=== PATIENT | female | born 1990 | race Caucasian/White ===

== ENCOUNTER 2017-04-13 12:46 | Emergency (ER) | payer OTHER ==
--- NOTE | 2017-04-13 13:19 | ED CLINICAL REPORT ---
Clinical Report - Physicians/Mid Levels [facility] [address] [place] [address] 04/13/2017 12:49 [id number] Time Seen: 13:03; initial patient contact, initial documentation, patient care assumed. Arrived- By private vehicle. Historian- patient and mother. HISTORY OF PRESENT ILLNESS Chief Complaint: CHEST PAIN and DISCOMFORT. At its maximum, severity described as severe. When seen in the E.D., severity described as severe. Modifying factors. Not worsened by anything. Not relieved by anything. This started about 2 days ago and is still present. It was abrupt in onset and has been constant. It is described as "pain" and well localized and it is described as located in the right chest area and right shoulder and in the right scapular area. No radiation. No nausea, vomiting or diaphoresis. She has had difficulty breathing (hurts so bad it hurts to breathe). No additional chest pain. (took 600mg motrin, x2 percocet and prednisone, still hurts). Similar symptoms previously: None. Recent medical care: The patient was seen recently in a clinic. ( went to clinic yesterday for same thing, dx with inflamed shoulder, xrays done, normal, rx percocet, motrin and prednisone). REVIEW OF SYSTEMS No fever, cough, missed periods or abnormal bleeding. All systems otherwise negative, except as recorded above. PAST HISTORY See nurses notes. PROBLEMS: Cellulitis. Asthma. Pneumonia. Nephrolithiasis. URI. Ovarian Cyst. UTI - Urinary Tract Infection. Substance Abuse. Immunizations. Dysfunctional Uterine Bleeding. LNMP - Last Normal Menstrual Period. Lifestyle / Substance Problems. Laceration. Tetanus Status. --12:53 Alfredo Ortez R.N. ADDITIONAL SURGERIES: Cholecystectomy. . Repair R ring finger. Tonsillectomy. --12:53 Alfredo Ortez R.N. SOCIAL HISTORY Heavy tobacco smoker. Occasional alcohol use. History of heavy IV drug use: heroin. Recently used drugs yesterday. No recent travel. Is a local resident. ADDITIONAL NOTES The nursing notes have been reviewed with agreement regarding the chief complaint, HPI, ROS, PMH and patient medications and allergies. PHYSICAL EXAM Vital Signs: 04/13/2017 12:50 BP: 127/77. HR: 105. RR: 36. O2 saturation: 88%. Temp: 98.9 F. Have been reviewed as abnormal and appear to be correct. Blood pressure normal. Tachycardic. Tachypneic. Temperature normal. Oxygen saturation normal. Appearance: Alert. Oriented X3. No acute distress. Anxious. (pt appears under the influence, and very anxious). Eyes: Pupils equal, round and reactive to light. Eyes normal inspection. Neck: Normal inspection. Neck supple. CVS: Normal heart rate and rhythm. Heart sounds normal. Pulses normal. Respiratory: No respiratory distress. Chest tender. Chest pain reproducible with palpation of the posterior chest wall, with movement of the trunk and right arm and with deep breathing (tender over R scapula area). Breath sounds normal. Back: Normal external inspection. Skin: Skin warm and dry. Normal skin color. No rash. Normal skin turgor. Extremities: Extremities exhibit normal ROM. No lower extremity edema. Neuro: Oriented X 3. No motor deficit. No sensory deficit. LABS, X-RAYS, AND EKG EKG: EKG time: (1252). No acute process. No acute ischemia. Normal EKG. Rate: 99. Normal EKG. The study has been interpreted contemporaneously by me (and Dr Cordova). The EKG appears to be a good tracing. PROGRESS AND PROCEDURES Course of Care: tx options discussed, no need to repeat xray since one was done yesterday, pt already has rx meds and instructed to continue those and use heating pad 13:29 04/13/17. pt has chris for suboxone program, hasn't gotten any since Nov, see report for full details nurse reporting mom wants more done than just a 'shot' and she is demanding that we find out what is causing her pain 14:03 04/13/17. at bedside for nurse krysten, pt resting quietly, almost asleep, tx options again discussed with pt's mom, and mom warned about percocet and heroin mix, and voiced concerns over substance abuse and withdrawal. Patient and mother counseled in person. Differential Diagnosis: I considered muscle strain, costochondritis, myositis, pleurisy, myocardial infarction, intermediate coronary syndrome, unstable angina, angina, mitral valve prolapse, pericarditis, palpitations, pneumonia, gastroesophageal reflux disease, esophagitis and esophageal spasm as a possible cause of chest pain in this patient. This is a partial list of diagnoses considered. (anxiety, substance abuse). Disposition: Discharged home in good and improved condition (13:19). Condition: good and stable. CLINICAL IMPRESSION Anxiety reaction with hyperventilation. Chronic substance abuse- heroin with intoxication and anxiety. Acute nontraumatic pain in the right upper extremity (shoulder) .12 lead EKG performed. INSTRUCTIONS Warnings: GENERAL WARNINGS: Return or contact your physician immediately if your condition worsens or changes unexpectedly, if not improving as expected, or if other problems arise. SPECIFICALLY, return if you develop chest, neck, jaw, shoulder, arm, or back pain, difficulty breathing, a fluttering sensation in your chest, lightheadedness, fainting, excessive fatigue, or sudden sweating. Follow-up: Follow up with your doctor in about two days as needed. Call for an appointment. Summary of care provided to patient. Understanding of the discharge instructions verbalized by patient. (Electronically signed by Angelique Rollins A.R.N.P. 04/13/2017 15:00)
--- NOTE | 2017-04-13 13:19 | ED NURSING NOTES ---
Clinical Report - Nurses [facility] [address] [place] [address] 04/13/2017 12:49 Patient: EMILIANA DIXON TRIAGE Triage time 12:47. Acuity: LEVEL 2. Chief Complaint: CHEST PAIN. Alert. No acute distress. SEPSIS SCREEN: Sepsis Screen. Negative (no infection suspected/documented). Temperature not greater than 38.3 degrees C (101 degrees F). --12:56 Alfredo Ortez R.N. 12:50 04/13/17. BP: 127/77. HR: 105. RR: 36. O2 saturation: 88% on room air. Temp: 98.9 F (oral). Pain level now 10/10. --12:56 Alfredo Ortez R.N. 12:56 04/13/17. HR: 105. RR: 36. O2 saturation: 95% on nasal cannula at 2 liters/minute. Temp: 98.9 F. Pain level now 10/10. --12:56 Alfredo Ortez R.N. Weight: 58.9 kg stated. Height/Length: 61 inches Per Patient. BMI: 24.5. --12:53 Alfredo Ortez R.N. Medications None. --12:52 Alfredo Ortez R.N. Medication/allergy information source: the patient. --12:56 Alfredo Ortez R.N. Allergies Ceclor. Furadantin. --12:52 Alfredo Ortez R.N. History Historian: patient. Primary physician (no pcp). ( chest pain x2 days, seen yesterday and told she had an "inflamed shoulder".). Onset. (2 days ago). 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 PAST MEDICAL HX: Last normal menstrual period was 2 weeks ago. Sexual history - sexually active. Uses an intrauterine device. Denies current . SOCIAL HX: Heavy tobacco smoker (cigarette)- less than 1 pack per day. History of drug use: heroin. Recently used drugs yesterday. No alcohol use. ABUSE ASSESSMENT: Abuse assessment: The patient was asked "Do you feel safe in your home?". No report of abuse. FALL RISK ASSESSMENT: Fall risk assessment completed. No fall risk identified. NUTRITIONAL RISK ASSESSMENT: The nutritional risk assessment revealed no deficiencies. FUNCTIONAL ASSESSMENT: Functional assessment: no impairments noted. LEARNING NEEDS ASSESSMENT: The learning needs assessment revealed no barriers. SKIN INTEGRITY ASSESSMENT: Skin integrity risk assessment completed. No skin integrity risk identified. --12:56 Alfredo Ortez R.N. PROBLEMS: Cellulitis. Asthma. Pneumonia. Nephrolithiasis. URI. Ovarian Cyst. UTI - Urinary Tract Infection. Substance Abuse. Immunizations. Dysfunctional Uterine Bleeding. LNMP - Last Normal Menstrual Period. Lifestyle / Substance Problems. Laceration. Tetanus Status. --12:53 Alfredo Ortez R.N. ADDITIONAL SURGERIES: Cholecystectomy. . Repair R ring finger. Tonsillectomy. --12:53 Alfredo Ortez R.N. Interventions ID band on patient. To treatment room. --12:56 Alfredo Ortez R.N. PHYSICAL ASSESSMENT Ambulatory to room. GENERAL / NEURO / PSYCH: Appears in pain and anxious. RESPIRATORY: Mild respiratory distress. ( tachypnea). GI / : Abdomen soft. EXTREMITIES: No lower extremity edema. SKIN: Skin is warm and dry. --12:57 Alfredo Ortez R.N. NURSING PROGRESS NOTES The plan of care for this patient has been created. Patient gowned. Head of bed elevated. Call light placed in reach. Bed placed in lowest position. Brakes of bed on. Patient ready for evaluation- chart flagged. --12:57 Alfredo Ortez R.N. EKG time: (9402). EKG was performed by a tech and shown to the ED physician. --13:00 Alfredo Ortez R.N. 12:56 04/13/2017 Site #1 started via IV in the right antecubital space with an 20g angiocath, with aseptic technique and good blood return; one attempt. Blood drawn: rainbow set. Labeled in the presence of the patient and sent to the lab. Saline lock flushed with 10 mL saline. --13:01 Alfredo Ortez R.N. 13:44 04/13/2017 Toradol IVP 30 mg given over 1.5 minute(s) via site #1. Allergies verified and confirmed 5 rights. IV patency established. IV site checked: no pain, redness, or swelling. IV flushed thoroughly pre- and post-medication administration. IVP given by RN. --13:49 Alfredo Ortez R.N. DISPOSITION / DISCHARGE Departure time: 14:05 Apr 13 2017. Condition at departure: improved and stable. No learning barriers present. Discharge instructions provided and reviewed with the patient and parent. Patient and parent verbalized understanding. Written instructions provided in Cambodian. The patient was discharged by the nurse practitioner. She was discharged home and accompanied by parent. She left the Emergency Department ambulatory and via private vehicle. Parent driving. --17:16 Altagracia Mcleod R.N. 17:14 04/13/17. BP: 108/67. HR: 92. RR: 18. O2 saturation: 100% on room air. Temp: 98.8 F (oral). Pain level now: 5/10. --17:16 Altagracia Mcleod R.N. 14:00 04/13/2017 Site #1 removed upon discharge. Catheter intact. Manual pressure and bandage applied. --17:17 Altagracia Mcleod R.N. Locked/Released at 04/13/2017 17:17 by Altagracia Mcleod R.N.
--- NOTE | 2017-04-13 13:19 | ED ORDER SUMMARY ---
..... Patient: EMILIANA DIXON OrderSheet [facility] VisitID: [id number] [address] [place] [address] 26y, F Registration Date/Time: 04/13/2017 ORDER SHEET Weight: 58.9 kg (stated) Allergies: Ceclor, Furadantin GENERAL ORDERS: MEDICATION ORDERS: Toradol IM 60 mg (NOW) (13:14 04/13/2017 HBivens A.R.N.P.) (Ack 13:27 MWinterer R.N.) (Cancelled: Other13:45 HBivens A.R.N.P.) IV FLUIDS: Toradol IV 30 mg (NOW) (13:45 04/13/2017 HBivens A.R.N.P.) (Ack 13:45 MWinterer R.N.) (13:49 KWilliams R.N.) ORDER SHEET NOTES: [Electronically signed by Angelique Rollins A.R.N.P. (15:00 04/13/2017)] [Electronically signed by Altagracia Mcleod R.N. (17:17 04/13/2017)] [Electronically locked/signed by Altagracia Mcleod R.N. (17:17 04/13/2017)]
--- NOTE | 2017-04-13 13:19 | ED NURSING NOTES ---
Clinical Report - Nurses [facility] [address] [place] [address] 04/13/2017 12:49 Patient: EMILIANA DIXON TRIAGE Triage time 12:47. Acuity: LEVEL 2. Chief Complaint: CHEST PAIN. Alert. No acute distress. SEPSIS SCREEN: Sepsis Screen. Negative (no infection suspected/documented). Temperature not greater than 38.3 degrees C (101 degrees F). --12:56 Alfredo Ortez R.N. 12:50 04/13/17. BP: 127/77. HR: 105. RR: 36. O2 saturation: 88% on room air. Temp: 98.9 F (oral). Pain level now 10/10. --12:56 Alfredo Ortez R.N. 12:56 04/13/17. HR: 105. RR: 36. O2 saturation: 95% on nasal cannula at 2 liters/minute. Temp: 98.9 F. Pain level now 10/10. --12:56 Alfredo Ortez R.N. Weight: 58.9 kg stated. Height/Length: 61 inches Per Patient. BMI: 24.5. --12:53 Alfredo Ortez R.N. Medications None. --12:52 Alfredo Ortez R.N. Medication/allergy information source: the patient. --12:56 Alfredo Ortez R.N. Allergies Ceclor. Furadantin. --12:52 Alfredo Ortez R.N. History Historian: patient. Primary physician (no pcp). ( chest pain x2 days, seen yesterday and told she had an "inflamed shoulder".). Onset. (2 days ago). 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 PAST MEDICAL HX: Last normal menstrual period was 2 weeks ago. Sexual history - sexually active. Uses an intrauterine device. Denies current . SOCIAL HX: Heavy tobacco smoker (cigarette)- less than 1 pack per day. History of drug use: heroin. Recently used drugs yesterday. No alcohol use. ABUSE ASSESSMENT: Abuse assessment: The patient was asked "Do you feel safe in your home?". No report of abuse. FALL RISK ASSESSMENT: Fall risk assessment completed. No fall risk identified. NUTRITIONAL RISK ASSESSMENT: The nutritional risk assessment revealed no deficiencies. FUNCTIONAL ASSESSMENT: Functional assessment: no impairments noted. LEARNING NEEDS ASSESSMENT: The learning needs assessment revealed no barriers. SKIN INTEGRITY ASSESSMENT: Skin integrity risk assessment completed. No skin integrity risk identified. --12:56 Alfredo Ortez R.N. PROBLEMS: Cellulitis. Asthma. Pneumonia. Nephrolithiasis. URI. Ovarian Cyst. UTI - Urinary Tract Infection. Substance Abuse. Immunizations. Dysfunctional Uterine Bleeding. LNMP - Last Normal Menstrual Period. Lifestyle / Substance Problems. Laceration. Tetanus Status. --12:53 Alfredo Ortez R.N. ADDITIONAL SURGERIES: Cholecystectomy. . Repair R ring finger. Tonsillectomy. --12:53 Alfredo Ortez R.N. Interventions ID band on patient. To treatment room. --12:56 Alfredo Ortez R.N. PHYSICAL ASSESSMENT Ambulatory to room. GENERAL / NEURO / PSYCH: Appears in pain and anxious. RESPIRATORY: Mild respiratory distress. ( tachypnea). GI / : Abdomen soft. EXTREMITIES: No lower extremity edema. SKIN: Skin is warm and dry. --12:57 Alfredo Ortez R.N. NURSING PROGRESS NOTES The plan of care for this patient has been created. Patient gowned. Head of bed elevated. Call light placed in reach. Bed placed in lowest position. Brakes of bed on. Patient ready for evaluation- chart flagged. --12:57 Alfredo Ortez R.N. EKG time: (7312). EKG was performed by a tech and shown to the ED physician. --13:00 Alfredo Ortez R.N. 12:56 04/13/2017 Site #1 started via IV in the right antecubital space with an 20g angiocath, with aseptic technique and good blood return; one attempt. Blood drawn: rainbow set. Labeled in the presence of the patient and sent to the lab. Saline lock flushed with 10 mL saline. --13:01 Alfredo Ortez R.N. 13:44 04/13/2017 Toradol IVP 30 mg given over 1.5 minute(s) via site #1. Allergies verified and confirmed 5 rights. IV patency established. IV site checked: no pain, redness, or swelling. IV flushed thoroughly pre- and post-medication administration. IVP given by RN. --13:49 Alfredo Ortez R.N. DISPOSITION / DISCHARGE Departure time: 14:05 Apr 13 2017. Condition at departure: improved and stable. No learning barriers present. Discharge instructions provided and reviewed with the patient and parent. Patient and parent verbalized understanding. Written instructions provided in Samoan. The patient was discharged by the nurse practitioner. She was discharged home and accompanied by parent. She left the Emergency Department ambulatory and via private vehicle. Parent driving. --17:16 Altagracia Mcleod R.N. 17:14 04/13/17. BP: 108/67. HR: 92. RR: 18. O2 saturation: 100% on room air. Temp: 98.8 F (oral). Pain level now: 5/10. --17:16 Altagracia Mcleod R.N. 14:00 04/13/2017 Site #1 removed upon discharge. Catheter intact. Manual pressure and bandage applied. --17:17 Altagracia Mcleod R.N. Locked/Released at 04/13/2017 17:17 by Altagracia Mcleod R.N.
--- NOTE | 2017-04-13 13:19 | ED ORDER SUMMARY ---
..... Patient: EMILIANA DIXON OrderSheet [facility] VisitID: [id number] [address] [place] [address] 26y, F Registration Date/Time: 04/13/2017 ORDER SHEET Weight: 58.9 kg (stated) Allergies: Ceclor, Furadantin GENERAL ORDERS: MEDICATION ORDERS: Toradol IM 60 mg (NOW) (13:14 04/13/2017 HBivens A.R.N.P.) (Ack 13:27 MWinterer R.N.) (Cancelled: Other13:45 HBivens A.R.N.P.) IV FLUIDS: Toradol IV 30 mg (NOW) (13:45 04/13/2017 HBivens A.R.N.P.) (Ack 13:45 MWinterer R.N.) (13:49 KWilliams R.N.) ORDER SHEET NOTES: [Electronically signed by Angelique Rollins A.R.N.P. (15:00 04/13/2017)] [Electronically signed by Altagracia Mcleod R.N. (17:17 04/13/2017)] [Electronically locked/signed by Altagracia Mcleod R.N. (17:17 04/13/2017)]
--- NOTE | 2017-04-13 17:17 | ED MED RECONCILIATION SUMMARY ---
Patient: EMILIANA DIXON Medication Reconciliation Report [facility] VisitID: [id number] [address] [place] [address] 26y, F Registration Date/Time: 04/13/2017 Weight: 58.9 kg Height/Length: 61 in. BMI: 24.5 ALLERGIES: Ceclor, Furadantin The patient's Home Medications are listed below: NONE. The source(s) of the original Home Medication information: patient The following Medications were given to the patient in the Emergency Department: Toradol [IVP] IVP 30 mg, administered: 04/13/2017 1:44:00 PM The following Medications were prescribed to the patient: None.
--- NOTE | 2017-04-13 17:17 | ED MAR SUMMARY ---
..... Medication Administration Record [facility] [address] [place] [address] Patient: EMILIANA DIXON Visit ID: [id number] 26y, F Weight: 58.9 kg Height/Length: 61 in BMI: 24.5 ALLERGIES: Ceclor, Furadantin Given 13:44 04/13/2017 Alfredo Ortez RElif Medication Administered: TORADOL [IVP], Dose: 30 mg IVP over 1.5 minute(s), Site: #1 right AC. Medication Ordered: Toradol IV 30 mg (NOW).
--- NOTE | 2017-04-13 17:17 | ED MED RECONCILIATION SUMMARY ---
Patient: EMILIANA DIXON Medication Reconciliation Report [facility] VisitID: [id number] [address] [place] [address] 26y, F Registration Date/Time: 04/13/2017 Weight: 58.9 kg Height/Length: 61 in. BMI: 24.5 ALLERGIES: Ceclor, Furadantin The patient's Home Medications are listed below: NONE. The source(s) of the original Home Medication information: patient The following Medications were given to the patient in the Emergency Department: Toradol [IVP] IVP 30 mg, administered: 04/13/2017 1:44:00 PM The following Medications were prescribed to the patient: None.
--- NOTE | 2017-04-13 17:17 | ED MAR SUMMARY ---
..... Medication Administration Record [facility] [address] [place] [address] Patient: EMILIANA DIXON Visit ID: [id number] 26y, F Weight: 58.9 kg Height/Length: 61 in BMI: 24.5 ALLERGIES: Ceclor, Furadantin Given 13:44 04/13/2017 Alfredo Ortez RElif Medication Administered: TORADOL [IVP], Dose: 30 mg IVP over 1.5 minute(s), Site: #1 right AC. Medication Ordered: Toradol IV 30 mg (NOW).
--- NOTE | 2017-04-13 17:17 | ED DISCHARGE INSTRUCTIONS ---
Patient: EMILIANA DIXON General Instructions [facility] VisitID: [id number] [place] [address] 26y, F Registration Date/Time: 04/13/2017 Anxiety reaction with hyperventilation. Chronic substance abuse- heroin with intoxication and anxiety. Acute nontraumatic pain in the right upper extremity (shoulder) .12 lead EKG performed. INSTRUCTIONS Warnings: GENERAL WARNINGS: Return or contact your physician immediately if your condition worsens or changes unexpectedly, if not improving as expected, or if other problems arise. SPECIFICALLY, return if you develop chest, neck, jaw, shoulder, arm, or back pain, difficulty breathing, a fluttering sensation in your chest, lightheadedness, fainting, excessive fatigue, or sudden sweating. Follow-up: Follow up with your doctor in about two days as needed. Call for an appointment. Summary of care provided to patient. Understanding of the discharge instructions verbalized by patient. ADDITIONAL INFORMATION Pain, Uncertain Cause [Acute] Pain is the bodys way of calling attention to a problem. Pain can be caused by many conditions - some minor, some serious. In your case, we were not able to find the exact cause for your pain. However, at this time there is no sign of any serious or life-threatening illness causing your pain. Sometimes more tests will be needed to determine the cause. Other times, just allowing more time to pass will either make it clear what the problem is, or the pain will go away by itself. Home Care: You may use acetaminophen (Tylenol) or ibuprofen (Motrin, Advil) to control pain, unless another medicine was prescribed. [NOTE: If you have chronic liver or kidney disease or ever had a stomach ulcer or GI bleeding, talk with your doctor before using these medicines.] Follow Up with your doctor or as advised by our staff. Get Prompt Medical Attention if any of the following occur: Changes in the pattern of your pain Appearance of new symptoms Fever of 100.4F (38C) or higher, or as directed by your healthcare provider Myositis Myositis is a class of rare auto-immune diseases that cause chronic inflammation. These include Polymyositis, which affects muscles throughout the body, and Dermatomyositis, which affects both skin and muscle. Other forms can affect the joints, heart, lungs and intestines. This condition can be hard to diagnose, because it resembles other diseases. Immune cells in the body usually attack and destroy viruses and harmful bacteria. In myositis, for unknown reasons, the immune system begins attacking the skin and/or muscles. Sometimes other parts of the body are also affected. Myositis may be triggered by exposure to certain chemicals, drugs, or viruses. It is important that you tell your doctor about any [id number]-liv-[id number] drug use, infection, or exposure to other substances that occurred near the time when your symptoms started. Stopping the exposure or treating the infection may stop myositis. The symptoms of myositis can be very different depending on the type you have. Common symptoms are muscle weakness (especially muscles of the hips and shoulders), loss of energy (fatigue), rash or changes in the skin, and arthritis (swollen, painful joints). You may have trouble climbing stairs, getting out of chairs, lifting heavy things, or raising your arms overhead. Sometimes the muscles ache and become tender. The swallowing muscles may also be affected. The disease usually starts slowly and may take months or years to develop. You may notice that you have periods when your symptoms get worse (active disease) followed by periods where symptoms get better or go away completely (remission). Treatment options include medication, rest, physical therapy and exercise. Your doctor may prescribe oral steroids or drugs that suppress the immune system in order to slow down the progress of the disease. Home Care: If you were prescribed a medication, take it as directed. You may use acetaminophen (Tylenol) or ibuprofen (Motrin, Advil) to control pain, unless another medicine was prescribed. [NOTE: If you have chronic liver or kidney disease or ever had a stomach ulcer or GI bleeding, talk with your doctor before using these medicines.] Dont take ibuprofen or other NSAIDs (non-steroidal anti-inflammatory drugs) if you were prescribed prednisone. Remain physically active. Light exercise and physical activity are helpful to keep your muscles in the best shape possible. Talk to your doctor about an exercise plan that is right for you. If you are having muscle aches, rest as needed. Follow Up with your doctor or as advised by our staff. For more information contact: Myositis Association, www.myositis.org Ar[employer] [phone], www.arthritis.org Return Promptly or contact your doctor if any of the following occur: Change in bowel or bladder habits Blood in the stool (black or red color) Unexpected weight loss A lump in the breast or elsewhere Difficulty swallowing Change in the appearance of a wart or mole Persistent cough, hoarseness or coughing up blood Night sweats or unexplained fevers Shortness of breath Arthralgia Arthralgia is the term for pain in or around the joint. It is not a disease but a symptom. This may involve one or more joints. Sometimes arthralgias move from joint to joint. There are many causes for joint pain. These include: Injury Osteoarthritis (from wearing out of the joint surface) Rheumatoid arthritis (an autoimmune disease) Gout (inflammation of the joint due to crystals in the joint fluid) Infection inside the joint Bursitis (inflammation of the fluid-filled sacs around the joint) Lupus and other collagen-vascular disease Home Care: Rest the involved joint(s) until your symptoms improve. You may use acetaminophen (Tylenol) or ibuprofen (Motrin, Advil) to control pain, unless another pain medicine was prescribed. [NOTE: If you have chronic liver or kidney disease or ever had a stomach ulcer or GI bleeding, talk with your doctor before using these medicines.] Follow Up with your doctor or as advised by our staff. [NOTE: If you had an X-ray it will be reviewed by a specialist. You will be notified of any new findings that may affect your care.] Return Promptly or contact your doctor if any of the following occurs: Pain increases Pain moves to other joints New rash appears Fever of 100.4F (38C) or higher, or as directed by your healthcare provider Shoulder Pain (Uncertain Cause) Shoulder pain often arises from the structures that surround the shoulder joint (the joint capsule, ligaments, tendons, muscles, and bursa). The joint itself contains cartilage that can become worn out or injured and can also be a source of pain. The correct treatment requires knowing the cause of the pain. Sometimes it is difficult to diagnose the exact cause of shoulder pain and referral to a specialist may be required. You may eventually need special tests such as CT scan, MRI, or arthroscopy (a procedure that uses special instruments to look inside the joint through a small incision). Shoulder pain can be treated initially with a sling or shoulder immobilizer and anti-inflammatory medicines such as ibuprofen. Special shoulder exercises may be needed. Follow-up with a specialist is important when pain is severe or does not go away after a few weeks. Home Care: If a sling was provided, leave it in place for the time advised by your doctor. If you are unsure how long to wear it, ask for advice. If the sling becomes loose, adjust it so that your forearm is level with the ground and the shoulder feels well supported. Apply an ice pack (ice cubes in a plastic bag, wrapped in a towel) over the injured area for 20 minutes every 1 to 2 hours the first day for pain relief. Continue this 3 to 4 times a day until the pain and swelling go away. You may use acetaminophen (Tylenol) or ibuprofen (Motrin, Advil) to control pain, unless another pain medicine was prescribed. (NOTE: If you have chronic liver or kidney disease or ever had a stomach ulcer or GI bleeding, talk with your doctor before using these medicines.) Shoulder pain may seem worse at night, when there is less to distract you from the pain. If you sleep on your side, try to keep your weight off your painful shoulder. Propping pillows behind you may prevent you from rolling over onto that shoulder during sleep. Shoulder joints become stiff if left in a sling for too long. [id number] exercises should usually be started within the first 10 days after injury. Consult your doctor on what type of exercises to do and how soon to start. You may remove the sling to shower or bathe. Follow Up with your doctor, or as advised by our staff, if you are not starting to improve within the next 5 days. Get Prompt Medical Attention if any of the following occur: Pain or swelling increases Hand or fingers becomes cold, blue, numb, or tingly Large amount of bruising of the shoulder or upper arm Stress Reaction Anxiety is the feeling we all get when we think something bad might happen. It is a normal response to stress and usually causes only a mild reaction. When anxiety becomes more severe, emotions may interfere with daily life. In some cases, you may not even be aware of what it is youre anxious about! During an anxiety reaction, you may feel like you are helpless, nervous, depressed or irritable. Your body may show signs of anxiety in many ways. You may experience dry mouth, shakiness, dizziness, weakness, trouble breathing, chest pressure, headache, nausea, diarrhea, tiredness, inability to sleep or sexual problems. Home Care: 1) Try to locate the sources of stress in your life. They may not be obvious! These may include: -- Daily hassles of life which pile up (traffic jams, missed appointments, car troubles, etc.) -- Major life changes, both good (new baby, job promotion) and bad (loss of job, loss of loved one) -- Overload: feeling that you have too many responsibilities and can't take care of all of them at once -- Feeling helpless, feeling that your problems are beyond what youre able to solve 2) Notice how your body reacts to stress. Learn to listen to your body signals. This will help you take action before the stress becomes severe. 3) When you can, do something about the source of your stress. (Avoid hassles, limit the amount of change that happens in your life at one time and take a break when you feel overloaded). 4) Unfortunately, many stressful situations cannot be avoided. It is necessary to learn HOW TO MANAGE STRESS better. There are many proven methods that will reduce your anxiety. These include simple things like exercise, good nutrition and adequate rest. Also, there are certain techniques that are helpful: relaxation and breathing exercises, visualization, biofeedback and meditation. For more information about this, consult your doctor or go to a local bookstore and review the many books and tapes available on this subject. Follow Up If you feel that your anxiety is not responding to self-help measures, contact your doctor or make an appointment with a counselor. Get Prompt Medical Attention if any of the following occur: -- Your symptoms get worse -- Chest pain or trouble breathing -- Severe headache not relieved by rest and mild pain reliever -- Rapid or irregular heartbeat, fainting Hyperventilation Syndrome Hyperventilation Syndrome is a condition in which you lose control of your breathing. You may find yourself breathing too fast and/or too deep. This can be triggered by pain, anxiety and emotional stress. If hyperventilation continues for more than a few minutes, it can lead to a number of frightening symptoms, such as: Numbness and tingling of the hands, feet and face Clenching of the fingers or toes Dizziness Feeling like you cannot get enough air Chest pains Fainting or feeling like you are going to faint Once these symptoms begin, it is often hard to stop them because they lead to a cycle of more anxiety and more hyperventilation. It is important to understand that this is not a life-threatening condition and it will pass once you are able to relax. Relaxation and stress management methods can be learned and practiced in advance. These can help in the event of a future attack. Home Care: 1) Rest today until feeling back to normal. 2) If symptoms return: Sit or lie down. Remember that what is happening to you is temporary and will pass. Use the relaxation methods you have learned. It is no longer recommended to breathe into a paper bag. Follow Up with your doctor or as directed by our staff if symptoms recur. Get Prompt Medical Attention if any of the following occur: Increasing shortness of breath Fever of 100.0 F (38 C) or higher, or as directed by your healthcare provider Coughing up blood Chest pain that is made worse with each breath Redness, pain or swelling of the leg Ringing in your ears, Severe headache Weakness or fainting Drug Abuse Use and abuse of such drugs as marijuana, amphetamines (speed, crank), cocaine, heroin or prescription pain medicines (Vicodin, codeine), sedatives and sleeping pills (Valium, Klonopin), PCP, mescaline and LSD may lead to addiction or dependence. Once this occurs, you are at greater risk for any of the following: Craving for the drug and unable to stop using the drug even though you think you want to stop (psychological dependence) Drug withdrawal symptoms if you stop taking the drug (physical dependence) Loss of your job or your family Arrest, conviction and long-term sentence for possession of an illegal substance or for driving under the influence of such a substance Accidental injuries to yourself or others while you are under the influence of the drug (in a car or at home). HIV infection (much greater risk if you use IV drugs) Other sexually transmitted diseases (herpes, chlamydia, gonorrhea and others) Severe and fatal infection of the heart valves (if you use IV drugs) Stroke, heart attack, hepatitis B or C, kidney failure from overdose Home Care: Admit you have a drug problem. Ask for help from your family and close friends. Seek professional help. This could be in the form of individual psychotherapy or counseling or an outpatient, inpatient, or residential drug treatment program. Join a self-help group for drug abuse. Avoid friends who abuse drugs themselves or tempt you to continue abusing drugs. Eat a balanced diet and begin a regular exercise program. Follow Up with your doctor or as advised by our staff. Contact one of the resources below for help. National [place] on Alcoholism and Drug Dependence www.ncadd.org 987-400-GGVV Narcotics Anonymous www.na.org 860-119-6588 [employer] Alcohol and Substance Abuse Information Center (for referral to treatment programs) www.[employer] 071-585-7241 Get Prompt Medical Attention if any of the following occur: Agitation, anxiety, unable to sleep Unintended weight loss (more than 10 to 15 pounds over 3 months) Seizure Chest pain Fever of 100.4F (38C) or higher, or as directed by your healthcare provider Excess drowsiness or inability to be awakened Shortness of breath Slow breathing under 8 breaths per minute Cough with colored sputum Redness, swelling or tenderness at an injection site Opiate Abuse Use and abuse of heroin or prescription pain medicines (Vicodin, codeine) may lead to physical ADDICTION or psychological DEPENDENCE. Once this occurs, you are at greater risk for any of the following: - Craving for the drug and unable to stop using the drug even though you think you want to stop (psychological dependence) - Drug withdrawal symptoms if you stop taking the drug (physical addiction) - Loss of your job or your family - Arrest, conviction and long-term sentence for possession of an illegal substance or for driving under the influence of such a substance - Accidental injuries to yourself or others while you are under the influence of the drug (in a car or at home). - HIV infection (much greater risk if you use IV drugs) - Other sexually transmitted diseases (Herpes, chlamydia, gonorrhea and others) - Severe and fatal infection of the heart valves (if you use IV drugs) - Stroke, heart attack, hepatitis B or C, kidney failure - from overdose Home Care: 1) Admit you have a drug problem. Ask for help from your family and close friends. 2) Seek professional help. This could be individual psychotherapy, counseling, or a drug treatment program (outpatient or residential). 3) Join a self-help group for drug abuse. 4) Avoid friends who abuse drugs themselves or tempt you to continue your habit 5) Eat a balanced diet and begin a regular exercise program. Follow Up with your doctor or as advised by our staff. Contact one of the resources below for help. National [place] on Alcoholism and Drug Dependence, www.ncadd.org 931-062-ITCB Narcotics Anonymous (check your phone book for a local listing or call 819-809-1780) www.na.org National Alcohol and Substance Abuse Information Center (for referral to treatment programs) Www.[employer] 271-040-8769 Get Prompt Medical Attention if any of the following occur: -- Symptoms of withdrawal (agitation, anxiety, trembling, sweats, diarrhea, unable to sleep) -- Chest pain -- Unexplained fever over 100.4 F (38.0 C) -- Excessive drowsiness or inability to be awakened -- Slow breathing under 8 breaths per minute -- Shortness of breath or cough with colored sputum -- Redness, swelling or tenderness at an injection site You have been given the following additional information: Pain, Uncertain Cause (Acute) Myositis Arthralgia Shoulder Pain (Uncertain Cause) Anxiety Reaction Hyperventilation Syndrome Drug Abuse Opiate Abuse (Electronically signed by Angelique Rollins A.R.N.P. 04/13/2017 15:00)
== END 2017-04-13 14:05 | disposition home or self-care (01) ==
LOC: ED SRH 12:46
DX: F41.1 Generalized anxiety disorder (principal); R06.4 Hyperventilation; F11.129 Opioid abuse with intoxication, unspecified; F11.188 Opioid abuse with other opioid-induced disorder; M25.511 Pain in right shoulder; Z88.8 Allergy status to other drugs, medicaments and biological substances; F17.210 Nicotine dependence, cigarettes, uncomplicated